=== PATIENT | female | born 1965 | race Caucasian/White ===

== ENCOUNTER 2016-11-28 05:56 | Day surgery (SDC) | payer BC ==
--- NOTE | ~2016-11-28 | EGD ---
EGD REPORT [facility] [address] [address] NAME: MARIE SHAW : 65 STATUS : REG [facility]#: [id number] AGE: 51 ADM/REG DATE : 11/28/16 MR#: [id number] REPORT SERV DATE: 11/28/16 DICTATED BY: ELMER TAY DATE: 11/28/16 REPORT STATUS : Draft TRANSCRIBED BY: [employer] DATE: 11/28/16 [facility] Patient Name: Marie Shaw Date of : 1965 Attending MD: ELMER TAY MD Procedure Date No Time: 11/28/2016 Procedure: Colonoscopy Indications: Screening for colorectal malignant neoplasm Medicines: Sedation Required Anesthesia Staff Assistance Complications: No immediate complications. Estimated blood loss: Minimal. Procedure: Pre-Anesthesia Assessment: - ASA Grade Assessment: After I obtained informed consent, the scope was passed under direct vision. Throughout the procedure, the patient's blood pressure, pulse, and oxygen saturations were monitored continuously. The PCF [id number] was introduced through the anus and advanced to the terminal ileum, with identification of the appendiceal orifice and IC valve. The colonoscopy was performed without difficulty. The patient tolerated the procedure well. The quality of the bowel preparation was excellent. The ileocecal valve, appendiceal orifice, terminal ileum and rectum were photographed. Findings: The terminal ileum appeared normal. Two sessile polyps were found in the cecum. The polyps were 2 mm in size. These polyps were removed with a cold biopsy forceps. Resection and retrieval were complete. The exam was otherwise without abnormality. Impression: - The examined portion of the ileum was normal. - Two 2 mm polyps in the cecum. Resected and retrieved. - The examination was otherwise normal. Recommendation: - Discharge patient to home. - Patient has a contact number available for emergencies. The signs and symptoms of potential delayed complications were discussed with the patient. Return to normal activities tomorrow. Written discharge instructions were provided to the patient. - Return to previous diet daily. - Continue present medications. - Await pathology results. EGD REPORT [address] [place]. [address] NAME: MARIE SHAW : [birth year] STATUS : REG [facility]#: [id number] AGE: 51 ADM/REG DATE : 11/28/16 MR#: [id number] REPORT SERV DATE: 11/28/16 DICTATED BY: ELMER TAY. DATE: 11/28/16 REPORT STATUS : Draft TRANSCRIBED BY: [employer] DATE: 11/28/16 - Repeat colonoscopy in 5-10 years for surveillance based on pathology results. Procedure Code(s): --- Professional --- 73754, Colonoscopy, flexible, proximal to splenic flexure; with biopsy, single or multiple Diagnosis Code(s): --- Professional --- D12.0, Benign neoplasm of cecum Z12.11, Encounter for screening for malignant neoplasm of colon CPT copyright 2013 [employer]. All rights reserved. The codes documented in this report are preliminary and upon diesel truck mechanic review may be revised to meet current compliance requirements. ELMER TAY MD 11/28/2016 7:52 AM This report has been signed electronically. Number of Addenda: 0 Note Initiated On: 11/28/2016 6:59 AM Scope Withdrawal Time 0 hours 9 minutes 11 seconds [address] [id number]
[~2016-11-28 05:56] MED LIST: ACET500CAP PO; ARMOUR THYRO30 MG PO; ARMOUR THYRO60 MG PO; VITAMIN D31000 UNIT PO
== END 2016-11-28 23:59 | disposition home or self-care (01) ==
LOC: DMU 05:56
PROVIDERS: Internal Medicine Gastroenterology
PROC: 0DBH8ZX Excision of Cecum, Via Natural or Artificial Opening Endoscopic, Diagnostic (ICD-10-PCS; principal; 2016-11-28 10:00)
DX: Z12.11 Encounter for screening for malignant neoplasm of colon (principal); E03.9 Hypothyroidism, unspecified; Z88.0 Allergy status to penicillin; Z88.1 Allergy status to other antibiotic agents; Z88.2 Allergy status to sulfonamides; Z98.890 Other specified postprocedural states; Z79.899 Other long term (current) drug therapy
CPT/HCPCS: 84703; 88305